=== PATIENT | female | born 1975 | race Caucasian/White ===

== ENCOUNTER 2019-02-28 14:07 | Outpatient (CLI) | payer BC ==
--- NOTE | 2019-02-28 14:23 | RAD ---
Exam:Right foot 3 views HISTORY: Pain. Symptoms involve the fifth metatarsal COMPARISON: None FINDINGS: Lisfranc alignment is maintained. No fracture. Mild degenerative change about the fifth tar higinio-metatarsal articulation. No fracture Chronic changes involving the second distal interphalangeal joint. Correlate clinically. IMPRESSION: Chronic changes as described above.
== END 2019-02-28 14:08 | disposition home or self-care (01) ==
LOC: BICRAD 14:07
PROVIDERS: ATTEND Internal Medicine Rheumatology
DX: M79.671 Pain in right foot (principal); M79.89 Other specified soft tissue disorders

== ENCOUNTER 2020-02-27 11:37 | Outpatient (CLI) | payer BC ==
--- NOTE | 2020-02-27 12:41 | RAD ---
Lumbar spine: 4 views INDICATIONS:Low back pain COMPARISON:None FINDINGS: Vertebral bodies maintain normal height. Disc spaces of lumbar spine maintain normal height. Normal alignment is maintained. Mild facet hypertrophy at L4-5 and L5-S1. No soft tissue abnormality. IMPRESSION: Mild degenerative change with facet hypertrophy is noted.
== END 2020-02-27 11:38 | disposition home or self-care (01) ==
LOC: BICRAD 11:37
PROVIDERS: ATTEND Internal Medicine Rheumatology
DX: M54.5 Low back pain (principal); M47.816 Spondylosis without myelopathy or radiculopathy, lumbar region
CPT/HCPCS: 72110

== ENCOUNTER 2020-08-30 16:14 | Outpatient (CLI) | payer BC ==
--- NOTE | 2020-08-30 17:47 | RAD ---
RIGHT KNEE TWO VIEWS: History: Joint effusion, posterior knee pain. FINDINGS: There are no signs of fracture, dislocation, or joint effusion. No other significant findings. IMPRESSION: Negative right knee. POS: [id number]
== END 2020-08-30 16:15 | disposition home or self-care (01) ==
LOC: BICRAD 16:14
PROVIDERS: ATTEND Internal Medicine Rheumatology
DX: M25.461 Effusion, right knee (principal)

== ENCOUNTER 2022-04-24 14:38 | Outpatient (CLI) | payer BC | END 2022-04-24 14:39 | disposition home or self-care (01) | LOC: BICRAD 14:38 | PROVIDERS: ATTEND Internal Medicine Rheumatology | DX: M70.61 Trochanteric bursitis, right hip (principal); M70.62 Trochanteric bursitis, left hip; M25.551 Pain in right hip; M25.552 Pain in left hip | CPT/HCPCS: 73523 ==

== ENCOUNTER 2022-05-15 13:51 | Outpatient (CLI) | payer BC | END 2022-05-15 13:52 | disposition home or self-care (01) | LOC: BICRAD 13:51 | PROVIDERS: ATTEND Internal Medicine Rheumatology | DX: L40.50 Arthropathic psoriasis, unspecified (principal); M25.412 Effusion, left shoulder ==

== ENCOUNTER 2022-07-15 07:26 | Outpatient (CLI) | payer BC ==
[2022-07-15] MEDS ORDERED: Iopamidol 370 76% 100 ML VIAL ONE (15:54)
== END 2022-07-15 07:27 | disposition home or self-care (01) ==
LOC: CT 07:26
PROVIDERS: ATTEND Physician Assistant Medical
DX: R10.13 Epigastric pain (principal); R11.2 Nausea with vomiting, unspecified
CPT/HCPCS: 74160; Q9967

== ENCOUNTER 2022-10-10 09:01 | Outpatient (CLI) | payer BC | END 2022-10-10 09:02 | disposition home or self-care (01) | LOC: BICMAMMO 09:01 | PROVIDERS: ATTEND Internal Medicine Rheumatology | DX: M81.0 Age-related osteoporosis without current pathological fracture (principal); M85.851 Other specified disorders of bone density and structure, right thigh; M85.852 Other specified disorders of bone density and structure, left thigh | CPT/HCPCS: 77080 ==

== ENCOUNTER 2025-02-22 11:59 | Outpatient (CLI) | payer BC | END 2025-02-22 12:00 | disposition home or self-care (01) | LOC: BICMAMMO 11:59 | PROVIDERS: ATTEND Internal Medicine Rheumatology | DX: M81.0 Age-related osteoporosis without current pathological fracture (principal) | CPT/HCPCS: 77080 ==